=== PATIENT | male | born 1980 | race Caucasian/White ===

== ENCOUNTER 2017-12-28 10:58 | Day surgery (SDC) | payer BC ==
[2017-12-26 08:45] VITALS: BMI 25.7
[~2017-12-28 10:58] MED LIST: LACTATED RINGERS 1,000 ML IV SCH
[2017-12-28 11:59] VITALS: RESP 16; TEMP 98.9
[2017-12-28] MEDS ORDERED: LIDOCAINE 1% 20 ML VIAL (10MG/ML) FOR IV START INTRADERMA ONE (12:13)
[2017-12-28] MEDS ORDERED: PROPOFOL 10 MG/ML 20 ML VIAL IV ONE (12:47)
[2017-12-28] MEDS ORDERED: LIDOCAINE 1% INJ 10MG/ML (20 ML MDV) ONE (12:47)
--- NOTE | 2017-12-28 13:02 | P.PCN ---
Date of Procedure: 12/28/17 Procedure(s) Performed: BRIEF HISTORY: Patient is a 37-year-old pleasant male, scheduled for an elective colonoscopy as a part of evaluation of intermittent rectal bleeding for the last 6 months duration PROCEDURE PERFORMED: Colonoscopy. PREOPERATIVE DIAGNOSIS: Intermittent rectal bleeding of 6 months duration. IV sedation per Anesthesia. PROCEDURE: After informed consent was obtained, the patient, was brought into the endoscopy unit. IV sedation was administered by Anesthesia under continuous monitoring. Digital rectal examination revealed a posterior midline anal fissure. Initially the Olympus CF-160 flexible video colonoscope was then inserted in the rectum, gradually advanced into the cecum without any difficulty. Careful examination was performed as the scope was gradually being withdrawn. Ileocecal valve and the appendiceal orifice were visualized and appeared normal. Prep was excellent. Mucosa of the cecum, ascending colon, transverse colon, descending colon, sigmoid colon, and rectum appeared normal. Retroflexion was performed in the rectum and no lesions were seen. The patient tolerated the procedure well. IMPRESSION: Posterior midline anal fissure. Normal-appearing colon from rectum to cecum with no evidence of colitis or colorectal neoplasia. RECOMMENDATIONS: Findings of this examination were discussed with the patient well as his family. He was advised to be a high-fiber diet, take fiber supplements on a regular basis and avoid constipation. He was given a prescription for topical steroid cream as needed
[2017-12-28 13:24] VITALS: BP 130/90; PULSE 78
== END 2017-12-28 13:50 | disposition home or self-care (01) ==
LOC: ORWHC2ENDO 10:58
PROVIDERS: ATTEND Internal Medicine Gastroenterology
DX: K60.2 Anal fissure, unspecified (principal); I10 Essential (primary) hypertension; F17.210 Nicotine dependence, cigarettes, uncomplicated; Z88.5 Allergy status to narcotic agent; Z79.899 Other long term (current) drug therapy
CPT/HCPCS: 45378; J2001; J2704

== ENCOUNTER 2019-03-12 15:24 | Emergency (ER) | payer BC, OTHER ==
[2019-03-12 15:34] VITALS: BP 146/100; PULSE 80; RESP 20; TEMP 97.8
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
== END 2019-03-12 16:44 | disposition home or self-care (01) ==
LOC: EC 15:24
DX: S06.9X9A Unspecified intracranial injury with loss of consciousness of unspecified duration, initial encounter (principal); S09.93XA Unspecified injury of face, initial encounter; G93.0 Cerebral cysts; I10 Essential (primary) hypertension; Z79.899 Other long term (current) drug therapy; Z87.891 Personal history of nicotine dependence; W22.8XXA Striking against or struck by other objects, initial encounter; Y92.69 Other specified industrial and construction area as the place of occurrence of the external cause; Y99.0 Civilian activity done for income or pay
CPT/HCPCS: 70450; 70486; 72125; 99283

== ENCOUNTER → 2019-04-10 | Outpatient (CLI) | payer BC ==
--- NOTE | 2019-04-10 16:26 | MR ---
EXAMINATION TYPE: MR brain wo con DATE OF EXAM: 04/10/2019 COMPARISON: 03/12/2019 CT brain HISTORY: Cerebral cysts CONTRAST: Performed utilizing 0 mL intravenous Gadavist gadolinium contrast. TECHNIQUE: Multiplanar, multiecho imaging on a 3.0 Lou magnet is performed through the brain. Stud y is performed within 24 hours of arrival to the hospital. The craniovertebral junction is normal. The pituitary is normal. Diffusion-weighted imaging is performed. No abnormal hyperintensity is present to suggest an acute i ntracranial infarct or acute ischemic change. Signal through the brain is normal. Ventricles and sulci are appropriate for the patient age. No temporal horn dilatation is evident. No ventricular dilatation is evident. Lateral ventricles appear normal. Third ventricle is normal and sl it like. An abnormality to account for the signal abnormality on the CT is not identified. IMPRESSIONS: 1. No suspicious abnormality corresponding to suspected colloid cyst at the proximal third ventricle. No corresponding abnormality to account for the finding on CT.
== END | disposition home or self-care (01) ==
LOC: RADMRIMAIN 14:37
PROVIDERS: ATTEND Family Medicine
DX: G93.0 Cerebral cysts (principal)
CPT/HCPCS: 70551

== ENCOUNTER → 2019-12-22 | Outpatient (CLI) | payer BC ==
--- NOTE | 2019-12-22 17:18 | CT ---
EXAMINATION TYPE: CT abdomen pelvis w con DATE OF EXAM: 12/22/2019 COMPARISON: HISTORY: Epigastric abdominal pain. CT DLP: 1279 mGycm Automated exposure control for dose reduction was used. CONTRAST: Performed with IV Contrast, patient injected with 100ml mL of Isovue 300. Lung bases are clear of consolidation. There is minimal pleural thickening lateral posterior left sam g base that measures 1 x 1.5 cm. There is no pleural effusion. Heart size is normal. There is no deon cardial effusion. There is some mild fatty infiltration of the liver. Stomach is intact. Spleen appears normal. There i s no pancreatic mass. Gallbladder is contracted. There is no adrenal mass. Kidneys show satisfactory contrast opacification. There is no hydronephrosi s. Delayed images show normal renal excretion. There is 5.3 cm cortical cyst lateral right kidney. Th ere is 1.5 cm cortical cyst upper pole right kidney. There is no evidence of solid renal mass. There is 1.5 cm cortical cyst lateral left kidney. Ureters are not dilated. There is no retroperitoneal venkata nopathy. Bladder distends smoothly. There is no inguinal hernia. There is no free fluid in the pelvis . There is no mesenteric edema. There is no ascites or free air. There is no sign of a bowel obstructio n. Lumbar vertebra have normal spacing and alignment. Bony pelvis appears intact. Appendix is not def initely seen. There is no sign of thickened appendix. IMPRESSION: Minimal fatty infiltration of the liver. Appendix not seen. No sign of appendicitis. Focal pleural th ickening left posterior lateral lung base. Simple renal cysts.
== END | disposition home or self-care (01) ==
LOC: RADCTMAIN 14:46
PROVIDERS: ATTEND Family Medicine
DX: K76.0 Fatty (change of) liver, not elsewhere classified (principal); N28.1 Cyst of kidney, acquired
CPT/HCPCS: 74177; Q9967

== ENCOUNTER → 2019-12-25 | Outpatient (CLI) | payer BC | END | disposition home or self-care (01) | LOC: LABWHC1 12:47 | PROVIDERS: ATTEND Family Medicine | DX: R19.7 Diarrhea, unspecified (principal); R10.13 Epigastric pain; R11.10 Vomiting, unspecified | CPT/HCPCS: U0003; C9803 ==

== ENCOUNTER → 2020-01-12 | Outpatient (CLI) | payer BC ==
--- NOTE | 2020-01-13 07:08 | NM ---
Nuclear medicine hepatobiliary scan. HISTORY: Pain. DOSAGE: The patient received 8 ounces of ensure plus and 4.5 mCi of Technetium 99m Choletec. FINDINGS: There is normal hepatic extraction. The gallbladder is seen by 15 minutes. There is bilia ry to bowel clearance by 15 minutes. Ejection fraction is 89%. IMPRESSION: 1. No evidence of cholecystitis. 2. Ejection fraction of 89% can occasionally be seen with hyperdynamic gallbladder correlate clinical ly
== END | disposition home or self-care (01) ==
LOC: RADNMMAIN 15:11
PROVIDERS: ATTEND Family Medicine
DX: K81.9 Cholecystitis, unspecified (principal)
CPT/HCPCS: 78226; A9537

== ENCOUNTER → 2020-03-03 | Outpatient (CLI) | payer BC | END | disposition home or self-care (01) | LOC: LABWHC1 12:23 | PROVIDERS: ATTEND Family Medicine | DX: Z03.818 Encounter for observation for suspected exposure to other biological agents ruled out (principal) | CPT/HCPCS: U0003; C9803 ==

== ENCOUNTER → 2020-03-08 | Outpatient (CLI) | payer BC ==
--- NOTE | 2020-03-08 11:18 | US ---
EXAMINATION TYPE: US gallbladder DATE OF EXAM: 03/08/2020 COMPARISON: CLINICAL HISTORY: R10.13 Epigastric pain. Epigastric pain EXAM MEASUREMENTS: Liver Length: 17.6 cm Gallbladder Wall: 0.2 cm CBD: 0.4 cm Right Kidney: 10.5 x 5.9 x 7.0 cm Pancreas: Tail obscured by overlying bowel gas Liver: Echogenic and coarse in appearance. Prominent hypoechoic area seen in left lobe of liver off of left portal vein. No flow visualized. Gallbladder: wnl Evidence for sonographic Soni's sign: neg CBD: wnl Right Kidney: Lateral cystic lesion = 4.9 x 4.6 x 4.8 cm. [place] hypoechoic lesion with echogenic r im= 1.4 x 1.9 x 1.2 cm. IMPRESSION: 1. Hepatic steatosis. 2 right renal cystic changes.
== END | disposition home or self-care (01) ==
LOC: RADUSWWP 10:41
PROVIDERS: ATTEND Surgery
DX: K76.0 Fatty (change of) liver, not elsewhere classified (principal); N28.1 Cyst of kidney, acquired
CPT/HCPCS: 76705

== ENCOUNTER 2020-03-21 18:39 | Emergency (ER) | payer BC ==
[2020-03-21 19:02] VITALS: RESP 18
--- NOTE | 2020-03-21 19:04 | ED ---
Male Urogenital HPI - General Chief complaint: Urogenital Stated complaint: testicular pain Time Seen by Provider: 03/21/20 19:03 Source: patient, RN notes reviewed, old records reviewed Mode of arrival: ambulatory Limitations: no limitations - History of Present Illness Initial comments: This is a 40-year-old male patient Dese for evaluation regards to her right testicular pain. Patient has had a vasectomy. 3 children. Sudden onset of pain tonight. Very nauseous very sweaty no other significant medical history. No fevers. MD Complaint: testicle pain (Right) -: minutes(s) Location: right testicle Radiation: none Severity: severe Severity scale (1-10): 10 Quality: sharp Consistency: constant Improves with: none Worsens with: none Reports: denies other symptoms - Related Data Home Medications Medication Instructions Recorded Confirmed Lisinopril [Prinivil] 10 mg PO DAILY 12/20/13 03/21/20 Ibuprofen [Motrin Ib] 400 mg PO Q8H PRN 03/21/20 03/21/20 Previous Rx's Medication Instructions Recorded Ciprofloxacin HCl [Cipro] 500 mg PO Q12HR #14 tablet 03/21/20 Allergies Allergy/AdvReac Type Severity Reaction Status Date / Time codeine Allergy N/V Verified 03/21/20 20:28 Review of Systems ROS Statement: Those systems with pertinent positive or pertinent negative responses have been documented in the HPI. ROS Other: All systems not noted in ROS Statement are negative. Past Medical History Past Medical History: Hypertension Additional Past Medical History / Comment(s): HAS BEEN HAVING BLOOD IN STOOLS FOR OVER 2 YEARS OFF AND ON History of Any Multi-Drug Resistant Organisms: None Reported Past Surgical History: Appendectomy Additional Past Surgical History / Comment(s): COLONOSCOPY Past Anesthesia/Blood Transfusion Reactions: No Reported Reaction Past Psychological History: No Psychological Hx Reported Smoking Status: Current every day smoker Past Alcohol Use History: Occasional Past Drug Use History: None Reported - Past Family History Mother Family Medical History: No Reported History General Exam Limitations: no limitations General appearance: alert, in no apparent distress Head exam: Present: atraumatic, normocephalic, normal inspection Eye exam: Present: normal appearance, PERRL, EOMI. Absent: scleral icterus, conjunctival injection, periorbital swelling ENT exam: Present: normal exam, mucous membranes moist Neck exam: Present: normal inspection. Absent: tenderness, meningismus, lymphadenopathy Respiratory exam: Present: normal lung sounds bilaterally. Absent: respiratory distress, wheezes, rales, rhonchi, stridor Cardiovascular Exam: Present: regular rate, normal rhythm, normal heart sounds. Absent: systolic murmur, diastolic murmur, rubs, gallop, clicks GI/Abdominal exam: Present: soft, normal bowel sounds. Absent: distended, tenderness, guarding, rebound, rigid exam: Present: scrotal swelling External exam: Present: swelling Extremities exam: Present: normal inspection, full ROM, normal capillary refill. Absent: tenderness, pedal edema, joint swelling, calf tenderness Back exam: Present: normal inspection Neurological exam: Present: alert, oriented X3, CN II-XII intact Psychiatric exam: Present: normal affect, normal mood Skin exam: Present: warm, dry, intact, normal color. Absent: rash Course Vital Signs 03/21/20 03/21/20 18:59 21:00 Temperature 98 F 98.0 F Pulse Rate 92 80 Respiratory 18 18 Rate Blood Pressure 140/97 143/80 O2 Sat by Pulse 100 97 Oximetry - Reevaluation(s) Reevaluation #1: 03/21/20 19:11 Medical records reviewed Reevaluation #2: 03/21/20 19:11 Patient made urgent ultrasound - Consultations Consultation #1: Spoke with urology recommended outpatient follow-up Medical Decision Making - Medical Decision Making 40-year-old male has received BLOOD pain control currently. Patient will see urology an outpatient basis - Lab Data Result diagrams: 03/21/20 19:17 03/21/20 19:17 Lab Results 03/21/20 03/21/20 03/21/20 Range/Units 19:17 19:17 19:17 WBC 11.3 H (3.8-10.6) k/uL RBC 5.50 (4.30-5.90) m/uL Hgb 18.3 H (13.0-17.5) gm/dL Hct 51.8 (39.0-53.0) % MCV 94.2 (80.0-100.0) fL MCH 33.2 (25.0-35.0) pg MCHC 35.2 (31.0-37.0) g/dL RDW 12.1 (11.5-15.5) % Plt Count 220 (150-450) k/uL Neutrophils % 51 % Lymphocytes % 37 % Monocytes % 7 % Eosinophils % 3 % Basophils % 1 % Neutrophils # 5.8 (1.3-7.7) k/uL Lymphocytes # 4.1 (1.0-4.8) k/uL Monocytes # 0.8 (0-1.0) k/uL Eosinophils # 0.3 (0-0.7) k/uL Basophils # 0.1 (0-0.2) k/uL PT 9.9 (9.0-12.0) sec INR 0.9 (<1.2) APTT 24.1 (22.0-30.0) sec Sodium 137 (137-145) mmol/L Potassium 3.4 L (3.5-5.1) mmol/L Chloride 103 (98-107) mmol/L Carbon Dioxide 25 (22-30) mmol/L Anion Gap 9 mmol/L BUN 23 H (9-20) mg/dL Creatinine 0.89 (0.66-1.25) mg/dL Est GFR (CKD-EPI)AfAm >90 (>60 ml/min/1.73 sqM) Est GFR (CKD-EPI)NonAf >90 (>60 ml/min/1.73 sqM) Glucose 122 H (74-99) mg/dL Calcium 9.4 (8.4-10.2) mg/dL Urine Color Urine Appearance (Clear) Urine pH (5.0-8.0) Ur Specific [place] (1.001-1.035) Urine Protein (Negative) Urine Glucose (UA) (Negative) Urine Ketones (Negative) Urine Blood (Negative) Urine Nitrite (Negative) Urine Bilirubin (Negative) Urine Urobilinogen (<2.0) mg/dL Ur Leukocyte Esterase (Negative) 03/21/20 Range/Units 20:13 WBC (3.8-10.6) k/uL RBC (4.30-5.90) m/uL Hgb (13.0-17.5) gm/dL Hct (39.0-53.0) % MCV (80.0-100.0) fL MCH (25.0-35.0) pg MCHC (31.0-37.0) g/dL RDW (11.5-15.5) % Plt Count (150-450) k/uL Neutrophils % % Lymphocytes % % Monocytes % % Eosinophils % % Basophils % % Neutrophils # (1.3-7.7) k/uL Lymphocytes # (1.0-4.8) k/uL Monocytes # (0-1.0) k/uL Eosinophils # (0-0.7) k/uL Basophils # (0-0.2) k/uL PT (9.0-12.0) sec INR (<1.2) APTT (22.0-30.0) sec Sodium (137-145) mmol/L Potassium (3.5-5.1) mmol/L Chloride (98-107) mmol/L Carbon Dioxide (22-30) mmol/L Anion Gap mmol/L BUN (9-20) mg/dL Creatinine (0.66-1.25) mg/dL Est GFR (CKD-EPI)AfAm (>60 ml/min/1.73 sqM) Est GFR (CKD-EPI)NonAf (>60 ml/min/1.73 sqM) Glucose (74-99) mg/dL Calcium (8.4-10.2) mg/dL Urine Color Yellow Urine Appearance Clear (Clear) Urine pH 5.5 (5.0-8.0) Ur Specific [place] 1.026 (1.001-1.035) Urine Protein Trace H (Negative) Urine Glucose (UA) Negative (Negative) Urine Ketones Negative (Negative) Urine Blood Negative (Negative) Urine Nitrite Negative (Negative) Urine Bilirubin Negative (Negative) Urine Urobilinogen <2.0 (<2.0) mg/dL Ur Leukocyte Esterase Negative (Negative) - Radiology Data Radiology results: report reviewed (Ultrasound scrotal negative for torsion), image reviewed Disposition Clinical Impression: UTI (urinary tract infection) Disposition: HOME SELF-CARE Condition: Good Instructions (If sedation given, give patient instructions): Urinary Tract Infection in Men (ED) Prescriptions: Ciprofloxacin HCl [Cipro] 500 mg PO Q12HR #14 tablet Is patient prescribed a controlled substance at d/c from ED?: No Referrals: Bebeto Salas MD [STAFF PHYSICIAN] - 1-2 days
[2020-03-21] MEDS ORDERED: MORPHINE SULFATE 4 MG/ML SYRINGE IV STA (19:08)
[2020-03-21] MEDS ORDERED: SODIUM CHLORIDE 0.9% 1,000 ML IV STA ×2 (19:08)
[2020-03-21 19:31] LABS: Basophils # (A) 0.1 k/uL (0-0.2); Basophils % (A) 1 %; Eosinophils # (A) 0.3 k/uL (0-0.7); Eosinophils % (A) 3 %; HCT 51.8 % (39.0-53.0); HGB 18.3 gm/dL (13.0-17.5); Lymphocytes # (A) 4.1 k/uL (1.0-4.8); Lymphocytes % (A) 37 %; MCH 33.2 pg (25.0-35.0); MCHC 35.2 g/dL (31.0-37.0); MCV 94.2 fL (80.0-100.0); Mean Platelet Volume 8.3; Monocytes # (A) 0.8 k/uL (0-1.0); Monocytes % (A) 7 %; Neutrophils # (A) 5.8 k/uL (1.3-7.7); Neutrophils % (A) 51 %; Platelet Count 220 k/uL (150-450); RDW 12.1 % (11.5-15.5); WBC 11.3 k/uL (3.8-10.6)
[2020-03-21 19:38] LABS: INR 0.9 (<1.2); Partial Thromboplastin Time 24.1 sec (22.0-30.0); Prothrombin Time 9.9 sec (9.0-12.0)
[2020-03-21 19:44] LABS: African American GFR (CKD) >90 (>60 ml/min/1.73 sqM); Anion Gap 9 mmol/L; Blood Urea Nitrogen 23 mg/dL (9-20); Calcium 9.4 mg/dL (8.4-10.2); Carbon Dioxide 25 mmol/L (22-30); Chloride 103 mmol/L (98-107); Glucose 122 mg/dL (74-99); Non-African American GFR(CKD) >90 (>60 ml/min/1.73 sqM); Sodium 137 mmol/L (137-145)
[2020-03-21 19:57] LABS: Potassium 3.4 mmol/L (3.5-5.1)
--- NOTE | 2020-03-21 20:30 | US ---
EXAMINATION TYPE: US scrotum with doppler. Grayscale and color Doppler Duplex imaging performed of t he scrotum. DATE OF EXAM: 03/21/2020 COMPARISON: NONE CLINICAL HISTORY: pain. Pain rt testicle.Started with left testicle to let pain meds kick in. EXAM MEASUREMENTS: TESTICLES: Right Testicle: 4.9 x 2.6 x 2.9 cm Left Testicle: 4.0 x 2.4 x 2.7 cm EPIDIDYMIS HEAD: Right Epididymis: cm Left Epididymis: 1.0 x 1.3 x .8 cm Doppler performed to assess for testicular vascularity; good bilateral color flow and waveforms are s een. There is no evidence of testicular torsion. Presence of hydroceles: No Presence of varicoceles: No IMPRESSION: No testicular torsion or mass.
[2020-03-21] MEDS ORDERED: IBUPROFEN 600 MG STARTER PACK 4 TAB BTL PO STA (20:33)
[2020-03-21] MEDS ORDERED: cefTRIAXone IN SWFI 1,000 MG/10 ML SYRINGE IVP STA (20:33)
[2020-03-21] MEDS ORDERED: ACET/COD 300 MG/30 MG STARTER PACK 6 TAB BTL PO STA (20:33)
[2020-03-21] MEDS ORDERED: KETOROLAC 15 MG/ML 1 ML VIAL IVP STA (20:33)
[2020-03-21 20:42] LABS: Appearance,Urine Clear (Clear); Bilirubin,Urine Negative (Negative); Blood,Urine Negative (Negative); Color,Urine Yellow; Glucose,Urine (UA) Negative (Negative); Ketones,Urine Negative (Negative); Leukocyte Esterase,Urine Negative (Negative); Nitrite,Urine Negative (Negative); PH, Urine 5.5 (5.0-8.0); Protein,Urine Trace (Negative); Specific Gravity,Urine 1.026 (1.001-1.035); Urobilinogen,Urine <2.0 mg/dL (<2.0)
[2020-03-21] MEDS ORDERED: MORPHINE SULFATE 4 MG/ML SYRINGE IVP STA (21:00)
[2020-03-21 21:02] VITALS: BP 143/80; PULSE 80; TEMP 98
[2020-03-23 16:04] LABS: C. trachomatis,PCR Negative (Neg,Equiv); Chlamydia trachomatis Source Urine; N. gonorrhoeae,PCR Negative (Neg,Equiv); Neisseria Source Urine
== END 2020-03-21 21:43 | disposition home or self-care (01) ==
LOC: EC 18:39
DX: N39.0 Urinary tract infection, site not specified (principal); I10 Essential (primary) hypertension; F17.200 Nicotine dependence, unspecified, uncomplicated; Z79.899 Other long term (current) drug therapy; Z88.5 Allergy status to narcotic agent
CPT/HCPCS: 36415; 80048; 85025; 85610; 85730; 81003; 87491; 87591; 93975; 76870; 99285; 96374; 96375 ×2; 96376; 96361 ×2; J2270; J0696; J1885

== ENCOUNTER → 2020-03-30 | Day surgery (SDC) | payer BC ==
[2020-03-29 09:27] VITALS: BMI 26.4
[~2020-03-30] MED LIST changes: +LIDOCAINE 1% (10MG/ML) FOR IV START INTRADERMA PRN; +LIDOCAINE 1% INJ 10MG/ML (20 ML MDV) ONE; +MIDAZOLAM 2 MG/2 ML VIAL IV PRN; +ONDANSETRON 4 MG/2 ML VIAL IVP PRN; +PROPOFOL 10 MG/ML 20 ML VIAL IV ONE; +fentaNYL (PF) 50 MCG/ML 2 ML AMP IV PRN
[2020-03-30 11:09] VITALS: TEMP 98.3
--- NOTE | 2020-03-30 12:08 | P.GSHP ---
History of Present Illness H&P Date: 03/30/20 Chief Complaint: Abdominal pain, change in bowel habits 40-year-old male seen recently in the office. Patient complaining of both epigastric pain and frequent diarrhea. Blood at times. Last colonoscopy 1 year ago by GI. The study was normal. Recent CAT scan reportedly normal. HIDA scan showed an elevated ejection fraction. Ultrasound normal. Patient also complaining of right scrotal pain. Past Medical History Past Medical History: Hypertension Additional Past Medical History / Comment(s): diarrhea daily, occasional blood in stool., states stomach pains. History of Any Multi-Drug Resistant Organisms: None Reported Past Surgical History: Appendectomy Additional Past Surgical History / Comment(s): COLONOSCOPY Past Anesthesia/Blood Transfusion Reactions: No Reported Reaction Past Psychological History: No Psychological Hx Reported Smoking Status: Former smoker Past Alcohol Use History: None Reported Additional Past Alcohol Use History / Comment(s): QUIT SMOKING 2015, smoked 1 ppd, started smoking age 14. Past Drug Use History: None Reported - Past Family History Mother Family Medical History: No Reported History Medications and Allergies Home Medications Medication Instructions Recorded Confirmed Type Lisinopril [Prinivil] 10 mg PO DAILY 12/20/13 03/30/20 History Allergies Allergy/AdvReac Type Severity Reaction Status Date / Time codeine Allergy N/V Verified 03/30/20 11:04 Surgical - Exam Vital Signs Temp Pulse Resp BP Pulse Ox 98.3 F 98 16 129/89 96 03/30/20 11:07 03/30/20 11:07 03/30/20 11:07 03/30/20 11:07 03/30/20 11:07 Physical exam: General: Well-developed, well-nourished HEENT: Normocephalic, sclerae nonicteric Abdomen: Nontender, nondistended Extremities: No edema Neuro: Alert and oriented Assessment and Plan (1) Rectal bleeding Narrative/Plan: 40-year-old male with epigastric pain, rectal bleeding, and diarrhea. We'll proceed with upper and lower endoscopy at this time. Current Visit: Yes Status: Acute Code(s): K62.5 - HEMORRHAGE OF ANUS AND RECTUM SNOMED Code(s): 45880697
--- NOTE | 2020-03-30 12:26 | P.PCN ---
Date of Procedure: 03/30/20 Procedure(s) Performed: PREOPERATIVE DIAGNOSIS: Epigastric pain, change in bowel habits, rectal bleeding POSTOPERATIVE DIAGNOSIS: Gastritis with superficial ulcerations, gastritis, normal colon PROCEDURE: 1. EGD with biopsy 2. Colonoscopy random biopsy ANESTHESIA: [facility] [place] SURGEON: Damian Meza M.D. SPECIMENS: Antrum, random: ENDOSCOPIC PROCEDURE: The patient was on the endoscopy table in the left decubitus position. The Olympus gastroscope was inserted into the oropharynx and passed under direct visualization to the region of the third portion of the duodenum. From that point the scope was slowly withdrawn inspecting all surfaces carefully. There were no neoplastic inflammatory or polypoid lesions throughout the duodenum. The pylorus was widely patent. The stomach was carefully inspected. There was Estrace with multiple superficial ulcers present in the antrum and prepyloric region. Biopsies of the ulcers took place. Retroflexion revealed a normal hiatus. The esophagus was then carefully examined. There were no neoplastic inflammatory or polypoid lesions throughout the visualized esophagus. The patient was kept on the endoscopy table in the left decubitus position. The Olympus colonoscope was inserted into the anus and passed under direct visualization to the base of the cecum. The appendiceal orifice was visualized. The terminal ileum was inspected and appeared normal. A biopsy of the ileum took place to rule out inflammatory bowel disease. From that point the scope was slowly withdrawn inspecting all surfaces carefully. There were no neoplastic inflammatory or polypoid lesions throughout the cecum, ascending, transverse, descending, sigmoid and rectum. There was no visible diverticulosis noted. Random biopsies of the colon took place to rule out microscopic colitis. Digital rectal examination was normal. The patient was taken to the recovery room in stable condition per anesthesia guidelines. RECOMMENDATIONS: Await biopsy results. Begin antiacid therapy.
[2020-03-30 12:28] VITALS: RESP 17
[2020-03-30 12:39] VITALS: BP 100/64; PULSE 70
== END ==
LOC: ORWHC2ENDO 10:48
PROVIDERS: ATTEND Surgery
DX: R19.4 Change in bowel habit (principal); R19.7 Diarrhea, unspecified; K29.51 Unspecified chronic gastritis with bleeding; K25.4 Chronic or unspecified gastric ulcer with hemorrhage; N50.82 Scrotal pain; I10 Essential (primary) hypertension; Z90.49 Acquired absence of other specified parts of digestive tract; Z98.890 Other specified postprocedural states; Z87.891 Personal history of nicotine dependence; Z79.899 Other long term (current) drug therapy; Z88.5 Allergy status to narcotic agent
CPT/HCPCS: 88305; 45380; 43239; J2001; J2704

== ENCOUNTER → 2020-04-02 | Outpatient (CLI) | payer BC ==
--- NOTE | 2020-04-02 15:34 | CT ---
EXAMINATION TYPE: CT abdomen pelvis w con DATE OF EXAM: 04/02/2020 COMPARISON: CT abdomen and pelvis December 22, 2019 HISTORY: Liver lesion and ulcers per patient. No complaints at time of scan. CT DLP: 973.7 mGycm, Automated Exposure Control for Dose Reduction was Utilized. CONTRAST: CT scan of the abdomen and pelvis is performed with oral and with IV Contrast, patient injected with 100 mL of Isovue 300. FINDINGS: LUNG BASES: There is stable 1.3 x 1.0 cm lateral left basilar nodule axial image 9. LIVER/GB: Heterogeneous hypodense tissue throughout the liver consistent with diffuse fatty infiltrat ion redemonstrated. No distinct solid or cystic intrahepatic mass. PANCREAS: No significant abnormality is seen. SPLEEN: No significant abnormality is seen. ADRENALS: No significant abnormality is seen. KIDNEYS: Symmetrical medullary uptake and excretion without hydronephrosis seen bilaterally. Simple a ppearing is slightly lobulated thin walled 5.1 cm cyst or adjacent cysts in the right kidney mid to l ower pole level are redemonstrated. Subcentimeter thin-walled cyst laterally left kidney midpole leve l delayed axial image 33 noted. Persistent 2 nonobstructing upper pole right renal calculi up to 6 mm in size. BOWEL: Oral contrast reaches level of rectum. Suspicious small or large bowel dilatation. Appendix no t seen similar to prior and presumed surgically absent. Stomach not greatly distended on current stud y and thus suboptimally evaluated. More adequate distention noted on prior. PROSTATE/SEMINAL VESICLES: No gross abnormality seen. LYMPH NODES: No greater than 1cm abdominal or pelvic lymph nodes are appreciated. OSSEOUS STRUCTURES: No significant abnormality is seen. OTHER: No significant additional abnormality is seen. IMPRESSION: Diffuse fatty infiltration of liver redemonstrated. No suspicious focal mass or ductal di latation. Simple appearing thin-walled cysts in both kidneys. Stable nonobstructing right renal calcu li. Stable 1.3 x 1.0 cm basilar left lung nodule. Consider continued follow-up and/or PET CT evaluati on.
== END | disposition home or self-care (01) ==
LOC: RADCTMAIN 12:02
PROVIDERS: ATTEND Surgery
DX: K76.0 Fatty (change of) liver, not elsewhere classified (principal); N20.0 Calculus of kidney
CPT/HCPCS: 74177; Q9967

== ENCOUNTER → 2021-03-06 | Outpatient (CLI) | payer BC ==
--- NOTE | 2021-03-06 13:37 | MR ---
EXAMINATION TYPE: MR knee RT wo con DATE OF EXAM: 03/06/2021 COMPARISON: Outside right knee x-ray February 15, 2021 HISTORY: Right knee pain and swelling for years, hx medial meniscus injury. TECHNIQUE: Multiplanar, multisequence imaging of the right knee is performed without IV contrast. FINDINGS: MEDIAL MENISCUS: Some of-like signal posterior horn medial meniscus does not definitively articular s urface. LATERAL MENISCUS: Anterior and posterior horns are intact without tear. CRUCIATE LIGAMENTS: The anterior and posterior cruciate ligaments are intact and unremarkable. COLLATERAL LIGAMENTS: The medial collateral ligament and lateral collateral ligament complex are inta ct. Mild fluid signal surrounds the lateral ligament coronal image 22 for reference. EXTENSOR MECHANISM: Visualized quadriceps and patellar tendons are intact. EFFUSION: Small suprapatellar joint effusion. POPLITEAL CYST: No popliteal/leroy cyst. TRICOMPARTMENT SPACES: Tricompartment joint spaces show mild narrowing. More prominent narrowing infe rior patellofemoral compartment. Mild spurring patellofemoral compartment. CARTILAGE: Significant full-thickness cartilaginous loss inferior posterior patellar pole. Tricompart mental articular cartilage is otherwise preserved. BONE MARROW SIGNAL: Heterogeneous increased T2 signal along the posterior inferior aspect of the bailey lla as site of most prominent narrowing and cartilaginous loss. OTHER: No additional significant abnormality is appreciated. IMPRESSION: 1. Suspect intrasubstance tear posterior horn medial meniscus, no full-thickness meniscal tear. 2. Mild MCL sprain injury. 3. Small suprapatellar joint effusion. 4. Mild tricompartment degenerative changes except inferior patellofemoral compartment where more mod erate to severe findings are present as detailed above
== END | disposition home or self-care (01) ==
LOC: RADMRIMAIN 12:44
PROVIDERS: ATTEND Orthopaedic Surgery
DX: S83.411A Sprain of medial collateral ligament of right knee, initial encounter (principal); M25.461 Effusion, right knee; X58.XXXA Exposure to other specified factors, initial encounter

== ENCOUNTER → 2022-08-29 | Outpatient (CLI) | payer BC ==
--- NOTE | 2022-08-29 09:33 | XR ---
EXAMINATION TYPE: XR KUB DATE OF EXAM: 08/29/2022 9:17 AM CLINICAL HISTORY: Kidney stones. TECHNIQUE: Two supplying KUB images of the abdomen are obtained. COMPARISON: Most recent CT April 02, 2020. FINDINGS: There are 2 right-sided renal calculi upper pole level redemonstrated with largest calculus medially measuring 5 mm in size. No left-sided nephrolithiasis. Overall nonobstructive bowel gas pattern. Lung bases are clear. Visualized osseous structures are int act. IMPRESSION: As above.
== END ==
LOC: RADXRMAIN 09:01
PROVIDERS: ATTEND Urology
DX: N20.0 Calculus of kidney (principal)
CPT/HCPCS: 74018

== ENCOUNTER → 2022-09-19 | Outpatient (CLI) | payer BC ==
--- NOTE | 2022-09-19 21:50 | XR ---
EXAMINATION TYPE: XR KUB DATE OF EXAM: 09/19/2022 CLINICAL HISTORY: Kidney stones. TECHNIQUE: Two supine KUB images of the abdomen are obtained. COMPARISON: Most recent KUB 08/21/2022 FINDINGS: Limited evaluation due to bowel contents overlying the kidneys. There appears to be stable 5 mm calculus within the upper pole of the right kidney. No definitive left-sided nephrolithiasis. Ov erall nonobstructive bowel gas pattern. Lung bases are clear. Visualized osseous structures are intac t. IMPRESSION: As above.
== END | disposition home or self-care (01) ==
LOC: RADXRMAIN 15:50
PROVIDERS: ATTEND Urology
DX: N20.1 Calculus of ureter (principal)
CPT/HCPCS: 74018

== ENCOUNTER → 2022-09-26 | Outpatient (CLI) | payer BC ==
--- NOTE | 2022-09-26 15:26 | XR ---
EXAMINATION TYPE: XR KUB DATE OF EXAM: 09/26/2022 HISTORY: Pain Comparison: 09/19/2022 Single KUB is submitted for interpretation. Findings: Right renal calculi: 7 mm calculus upper pole right kidney. Right kidney is obscured by bowel content . Right ureteral calculi: 2 mm calculus in the region of the right UVJ. Distal ureteral calculus diffic ult to exclude. Left renal calculi: None Visualized. Left ureteral calculi: None Visualized. Pelvic calcifications: None Visualized. Bowel gas pattern is unremarkable. No free air. No mass effects. IMPRESSION: 1. As above
== END | disposition home or self-care (01) ==
LOC: RADXRMAIN 14:51
PROVIDERS: ATTEND Urology
DX: N20.0 Calculus of kidney (principal)
CPT/HCPCS: 74018

== ENCOUNTER → 2022-10-17 | Outpatient (CLI) | payer BC ==
--- NOTE | 2022-10-17 18:07 | XR ---
EXAMINATION TYPE: XR KUB DATE OF EXAM: 10/17/2022 Comparison: 09/26/2022 Clinical History: 42-year-old male N20.0 CALCULUS OF KIDNEY Findings: Nonobstructive bowel gas pattern. No significant stool burden. Possible faint 3 mm calcification proj ecting at the upper pole of the right kidney. Otherwise, no definite suspicious calcifications are ra diographically apparent. Impression: Possible 3 mm nonobstructive right renal calculus. Otherwise, no definite suspicious calcifications r adiographically apparent.
== END | disposition home or self-care (01) ==
LOC: RADXRMAIN 12:38
PROVIDERS: ATTEND Urology
DX: N20.0 Calculus of kidney (principal)
CPT/HCPCS: 74018

== ENCOUNTER → 2023-07-20 | Outpatient (CLI) | payer BC ==
--- NOTE | 2023-07-20 18:20 | XR ---
EXAMINATION TYPE: XR KUB DATE OF EXAM: 07/20/2023 Comparison: 10/17/2022 Clinical History: 43-year-old male N20.0 CALCULUS OF KIDNEY Findings: Nonobstructive bowel gas pattern. No significant stool burden. Tiny pelvic phlebolith on the right side. No suspicious calcifications are clearly identified radiogr aphically. Impression: Nonobstructive bowel gas pattern. No significant stool burden. No suspicious calcification radiograph ically appreciated.
== END | disposition home or self-care (01) ==
LOC: RADXRMAIN 11:20
PROVIDERS: ATTEND Urology
DX: N20.0 Calculus of kidney (principal)
CPT/HCPCS: 74018

== ENCOUNTER → 2023-07-27 | Outpatient (CLI) | payer BC ==
--- NOTE | 2023-07-27 12:47 | CT ---
CT angiogram. HISTORY: Gross hematuria. COMPARISON: CT abdomen and pelvis dated 04/02/2020. TECHNIQUE: Multiple axial images were obtained through the abdomen and pelvis before and after the un eventful administration of nonionic IV contrast. Serial delayed postcontrast images were also obtaine d. Coronal and sagittal reconstructions are generated and reviewed. FINDINGS: There is an 11 to 12 mm subpleural parenchymal nodule in the left lung base which is seen previously are stable. On the pre-IV contrast images, there are no gallstones. There is a 4 mm nonobstructing calcification right kidney. 2 larger calcifications seen in the right kidney in the prior study have resolved. Ther e are no gallstones. The gallbladder is normal and there is no distention or biliary ductal dilatation. There are no focal masses within the liver, pancreas, spleen or adrenal glands and there is no organo megaly. There is moderate fatty infiltration of the liver. Kidneys excrete contrast promptly and symmetrically and there is no solid renal mass, hydronephrosis or filling defect within the renal collecting systems, ureters or urinary bladder. There is a cortica l cyst of the right kidney with calcification of the wall. It was seen previously and is stable. Ther e is a stable 4 x 5.1 cm calyceal diverticulum on the right. There is a stable small simple cortical cyst of the left kidney. The bowel loops are normal in caliber and there is no dilatation or obstruction. No inflammatory solares ges are identified in the bowel wall or mesentery. There is no free intraperitoneal air or fluid. There is no pelvic mass, free fluid, abscess or adenopathy. The osseous structures are intact. IMPRESSION: IMPRESSION: 1. 3 to 4 mm nonobstructing calcification right kidney. 2. No solid renal mass or hydronephrosis. 3. Stable Large calyceal diverticulum of the right kidney. 4. No solid renal mass or filling defects within the renal collecting systems, ureters or urinary obinna dder 5. Fatty infiltration of liver 6. Stable 11 to 12 mm subpleural parenchymal nodule in the left lung base.
== END | disposition home or self-care (01) ==
LOC: RADCTMAIN 11:03
PROVIDERS: ATTEND Urology
DX: N20.0 Calculus of kidney (principal); R31.0 Gross hematuria; N28.89 Other specified disorders of kidney and ureter; K76.0 Fatty (change of) liver, not elsewhere classified; R91.1 Solitary pulmonary nodule
CPT/HCPCS: 74178; 74400; Q9967

== ENCOUNTER → 2024-09-24 | Outpatient (CLI) | payer BC ==
--- NOTE | 2024-09-24 20:03 | MR ---
EXAMINATION TYPE: MR knee LT wo con DATE OF EXAM: 09/24/2024 5:47 PM COMPARISON: Plain film. CLINICAL INDICATION: Male, 44 years old with history of M25.562, Left knee pain and swelling, Fell 3. 5 weeks ago, Recently had knee drained TECHNIQUE: Multi planar, multi sequence imaging was performed of the knee including: Triplane proton density fat-saturated images and T1-weighted imaging. No Gadolinium was given. IV Contrast: mL (none if empty) FINDINGS: Medial meniscus: Intact Medial femorotibial cartilage: Grade-I chondromalacia. Medial collateral ligament: Intact Lateral meniscus: Intact Lateral femorotibial cartilage: Grade-I chondromalacia. Lateral collateral ligament complex: Intact Patellofemoral alignment: Normal Patellofemoral cartilage: Grade-I chondromalacia. Extensor mechanism: Quadriceps tendon and patellar tendon are intact.. Medial Patellar retinacula r injury as described below. Joint/bursal fluid: Infrapatellar edema on office fat pad series 411 image 13 Muscles/tendons: The patellar tendon, quadriceps tendon, IT band, pes anserinus tendons, semimembrano silva tendon, popliteus tendon, and biceps femoris tendon are all within normal limits. Bone marrow: Normal. Anterior cruciate ligament: Intact ganglion cyst adjacent to the ACL. Posterior cruciate ligament: Intact. Soft tissues: Prepatellar edema with more organized fluid collection in the medial aspect of the bailey llar retinaculum. The medial patellar retinaculum demonstrates undulation series 201 image 30. IMPRESSION: 1. Medial patellar retinaculum high-grade partial present and superficial fluid collection present i mmediately adjacent fat with surrounding edema throughout the soft tissues. 2. Edema within lateral Hoffa's fat pad possibly secondary to the retinacular injury and lateral dev iation of the patella 3. The MCL/ACL/PCL/LCL are intact. 4. The medial and lateral menisci are intact. 5. No evidence for fracture. [facility], , 09/24/2024 8:01 PM
== END | disposition home or self-care (01) ==
LOC: RADMRIMAIN 16:54
PROVIDERS: ATTEND Orthopaedic Surgery
DX: R60.0 Localized edema (principal); M67.462 Ganglion, left knee

== ENCOUNTER → 2024-09-26 | Outpatient (CLI) | payer BC ==
[2024-09-26 18:41] LABS: Basophils # (A) 0.03 X 10*3/uL (0.00-0.10); Basophils % (A) 0.4 %; Eosinophils # (A) 0.13 X 10*3/uL (0.04-0.35); Eosinophils % (A) 1.9 %; HCT 48.6 % (39.6-50.0); HGB 16.9 g/dL (13.0-17.0); Lymphocytes % (A) 35.9 %; MCH 31.6 pg (27.0-32.0); MCHC 34.8 g/dL (32.0-37.0); Mean Platelet Volume 11.9 FL (9.5-12.2); Monocytes # (A) 0.75 X 10*3/uL (0.20-1.00); Monocytes % (A) 10.8 %; NRBC Per 100 WBC 0 X 10*3/uL (0.00-0.01); Neutrophils # (A) 3.55 X 10*3/uL (1.80-7.70); Neutrophils % (A) 50.9 %; Platelet Count 213 X 10*3/uL (140-440); RBC 5.34 X 10*6/uL (4.40-5.60); RDW 12.1 % (11.5-14.5); WBC 6.97 X 10*3/uL (4.50-10.00)
[2024-09-26 18:56] LABS: Potassium 3.9 mmol/L (3.5-5.5)
== END | disposition home or self-care (01) ==
LOC: LABPAT 12:20
PROVIDERS: ATTEND Orthopaedic Surgery
DX: Z01.812 Encounter for preprocedural laboratory examination (principal); M23.92 Unspecified internal derangement of left knee
CPT/HCPCS: 80051; 85025

== ENCOUNTER 2024-09-29 13:06 | Day surgery (SDC) | payer BC ==
--- NOTE | 2024-09-29 05:26 | HP ---
HISTORY AND PHYSICAL DATE OF SURGERY: 09/29/2024 HISTORY OF PRESENT ILLNESS: Case Lopez is a 44-year-old gentleman who is seen with a left knee medial retinacular and probable quadriceps tendon tear. We discussed treatment options. I recommended open repair. Discussed the procedure, risks, complications, benefits, and recovery. The patient was agreeable. Consent regarding the procedure was obtained. PAST MEDICAL HISTORY: Hypertension. PAST SURGICAL HISTORY: Noncontributory. DAILY MEDICATIONS: Lisinopril/hydrochlorothiazide. ALLERGIES: None. SOCIAL HISTORY: He smokes cigarettes. PHYSICAL EVALUATION OF THE LEFT KNEE: His range of motion is -7 to 95 degrees. There is a palpable defect of the medial retinaculum up into the medial aspect of the quadriceps tendon. He has mild effusion. His collateral ligaments are stable. Hip rotation without pain. Distal neurovascular exam is intact. IMAGING STUDIES: Radiographs of the left knee failed to reveal any osseous abnormality. MRI of left knee revealed a tear of the medial retinaculum/capsule with intact ligaments. IMPRESSION: Left knee medial retinacular tear/quadriceps tendon tear. PLAN: Left knee arthrotomy with repair of the medial retinaculum and quadriceps tendon. Surgery is scheduled for 09/29/2024. MMODL / IJN: [id number] /
[~2024-09-29 13:06] MED LIST changes: -LACTATED RINGERS 1,000 ML IV SCH; -LIDOCAINE 1% (10MG/ML) FOR IV START INTRADERMA PRN; -LIDOCAINE 1% INJ 10MG/ML (20 ML MDV) ONE; -MIDAZOLAM 2 MG/2 ML VIAL IV PRN; -ONDANSETRON 4 MG/2 ML VIAL IVP PRN; -PROPOFOL 10 MG/ML 20 ML VIAL IV ONE; +TRANEXAMIC 1,000 MG/100ML-NACL 1,000 MG in SALINE 1 100ML.BAG IVPB PRN
[2024-09-29] MEDS: IV FLUID CONTINUATION 1,000 ML IV ONE (14:37)
[2024-09-29] MEDS: ONDANSETRON 4 MG/2 ML VIAL IVP ONE (15:04)
[2024-09-29] MEDS: MELOXICAM 7.5 MG TAB PO PRN (15:04)
[2024-09-29] MEDS: LACTATED RINGERS 1,000 ML IV SCH ×2 (15:04→18:38)
[2024-09-29] MEDS: ACETAMINOPHEN TAB 500 MG TAB PO PRN (15:04)
[2024-09-29] MEDS: DEXAMETHASONE SOD PHOSPHATE 4 MG/ML 1 ML VIAL IVP STA (15:06)
[2024-09-29] MEDS: MIDAZOLAM 2 MG/2 ML VIAL IV STA (15:15)
[2024-09-29] MEDS ORDERED: fentaNYL (PF) 50 MCG/ML 2 ML AMP ONE (15:20)
[2024-09-29] MEDS ORDERED: MIDAZOLAM 2 MG/2 ML VIAL ONE (15:20)
[2024-09-29] MEDS ORDERED: NEOSTIGMINE 1 MG/ML 10 ML VIAL ONE (15:20)
[2024-09-29] MEDS ORDERED: LIDOCAINE 1% INJ 10MG/ML (20 ML MDV) ONE (15:20)
[2024-09-29] MEDS ORDERED: ROPIVACAINE 5 MG/ML 30 ML VIAL ONE (15:20)
[2024-09-29] MEDS ORDERED: HYDROmorphone (PF) 1 MG/ML ONE (15:20)
[2024-09-29] MEDS ORDERED: SUCCINYLCHOLINE CHLORIDE 200 MG/10 ML VIAL IV ONE (15:20)
[2024-09-29] MEDS ORDERED: DEXAMETHASONE SOD PHOSPHATE 4 MG/ML 1 ML VIAL ONE (15:20)
[2024-09-29] MEDS ORDERED: TRANEXAMIC 1,000 MG/100ML-NACL PREMIX BAG ONE (15:20)
[2024-09-29] MEDS ORDERED: PROPOFOL 10 MG/ML 20 ML VIAL IV ONE (15:20)
[2024-09-29] MEDS ORDERED: GLYCOPYRROLATE 0.2 MG/ML 2 ML VIAL ONE (15:20)
[2024-09-29] MEDS ORDERED: ROCURONIUM 10 MG/ML (5 ML VIAL) IV ONE (15:20)
[2024-09-29] MEDS: ceFAZolin 2 GM in DEXTROSE 5% IN WATER 50 ML IVPB PRN (15:25)
[2024-09-29] MEDS: ceFAZolin 1,000 MG in SODIUM CHLORIDE 0.9% 1,000 ML IRRIGATION ONE (15:42)
[2024-09-29] MEDS ORDERED: HYDROmorphone 0.5 MG/0.5 ML SYRINGE IVP PRN (16:29)
[2024-09-29] MEDS ORDERED: HYDROmorphone 2 MG/ML 1 ML SYRINGE IVP PRN (16:29)
--- NOTE | 2024-09-29 16:29 | P.OP ---
Date of Procedure: 09/29/24 Preoperative Diagnosis: Left knee medial retinacular tear Postoperative Diagnosis: Left knee medial retinacular tear Procedure(s) Performed: Left knee arthrotomy with medial retinacular repair Anesthesia: HUNG regional (Adductor canal block) Surgeon: Gianfranco Lipscomb Recreation Clerk #1: Milo Lutz Estimated Blood Loss (ml): 15 Pathology: none sent Condition: stable Disposition: PACU Indications for Procedure: 44-year-old patient seen with a left knee medial retinacular tear. I recommended arthrotomy with repair of the medial retinacular tear. Patient was agreeable. Consent was obtained. Operative Findings: See description of procedure Description of Procedure: Patient was taken to the operative suite after having undergone a adductor canal block by the primary anesthesia for postoperative pain control. He underwent a general anesthetic by the department anesthesia. Web well-padded tourniquet placed proximal left thigh. He received preoperative IV antibiotics. The extremity was prepped and draped in the normal sterile orthopedic fashion. The extremity was elevated and tourniquet insufflated to 300. I made a standard anterior incision sharply through skin. Dissected down to subcu soft tissues. I immediately encountered significant synovial type fluid. I now explored the extensor mechanism. The quadriceps and patellar tendon were intact. There was significant high-grade partial tearing of the medial retinaculum along with a defect/hole more distally. We now open that area up and irrigated the joint wound out copiously with patient medial imbrication/repair of that medial retinaculum getting to [id number] healthy tissue. I now checked the repair with about 90 degrees of flexion it was stable. The wound was again irrigated with Irrisept. The subcutaneous soft tissues were tacked down to the deep tissues with 2-0 Vicryl. The incision was now repaired with a running subcuticular suture augmented with skin glue. Sterile dressings followed by Alexis bandage were applied. The tourniquet was released with immediate capillary refill of the entire extremity. The extremity is now placed into a knee immobilizer. The patient was then awakened, transferred to a bed and recovery in stable condition. Michael KEENE assisted in all aspects of the procedure.
[2024-09-29] MEDS: LACTATED RINGERS 1,000 ML IV ONE (16:38)
[2024-09-29] MEDS: HYDROmorphone 0.5 MG/0.5 ML SYRINGE IVP PRN (17:11)
[2024-09-29] MEDS: HYDROcodone/APAP 5-325MG 1 EACH TAB PO PRN (18:34)
--- NOTE | 2024-09-29 19:10 | P.ANPRN ---
Procedure Note - Anesthesia - Nerve Block Performed Left Adductor Canal Single Time Out Performed: Yes ([id number]) Date of Procedure: 09/29/24 Procedure Start Time: 15:17 Procedure Stop Time: 15:21 Location of Patient: PreOp Indication: Acute Post-Operative Pain, Requested by Surgeon Specifically requested for management of pain by DrAriadna: Gianfranco Lipscomb Sedation Type: Sedate with meaningful contact maintained Preparation: Sterile Prep Position: Supine Catheter: None Needle Types: Pajunk Needle Gauge: 21 Ultrasound used to visualize needle placement: Yes Ultrasound used to observe medication spread: Yes Injectate: 0.5% Ropivacaine (see comment for volume) (30cc+4mg decadron) Blood Aspirated: No Pain Paresthesia on Injection Noted: No Resistance on Injection: Normal Image Stored and Saved: Yes Events: Uneventful and Well Tolerated
[2024-09-29] MEDS: ONDANSETRON 4 MG/2 ML VIAL IVP PRN (20:07)
[2024-09-29] MEDS: ceFAZolin 2 GM in DEXTROSE 5% IN WATER 50 ML IVPB SCH (22:13)
[2024-09-30] MEDS ORDERED: droPERidol 2.5 MG/ML VIAL IVP PRN (07:00)
[2024-09-30] MEDS ORDERED: HYDROmorphone 0.5 MG/0.5 ML SYRINGE IVP PRN (07:00)
[2024-09-30 07:18] VITALS: BP 120/74; PULSE 92; RESP 18; TEMP 98
[2024-09-30] MEDS: ENOXAPARIN 40 MG/0.4 ML SYRINGE SQ SCH (08:43)
--- NOTE | 2024-09-30 09:52 | P.PN ---
Subjective Progress Note Date: 09/30/24 Principal diagnosis: Status post left knee medial retinacular repair Patient is examined today at bedside, his was also present. Patient is doing rather well, his pain is well-controlled. He has been urinating since surgery with no difficulty. He is utilizing the knee immobilizer as instructed. Denies any headaches, lightheadedness, chest pain, shortness of breath. Objective - Vital Signs Vital signs: Vital Signs Temp 98.0 F 09/30/24 06:43 Pulse 92 09/30/24 06:43 Resp 18 09/30/24 06:43 BP 120/74 09/30/24 06:43 Pulse Ox 94 L 09/30/24 06:43 FiO2 Intake & Output 09/29/24 09/30/24 09/30/24 18:59 06:59 18:59 Intake Total 1051 Output Total 15 Balance 1036 Weight 91.63 kg Intake: IV 1051 Output: Estimated Blood Loss 15 Other: # Voids 1 - Exam Left lower extremity: Knee immobilizer is in good position and condition. Alexis bandages also in good position and condition. Compartments of both the upper and lower leg are soft and compressible. Plantarflexion, dorsiflexion, EHL, FHL are intact. Calf is soft, no tenderness with palpation. Sensory exam to light touch is intact throughout the extremity. Dorsalis pedis pulses 2+ Assessment and Plan Assessment: Postoperative day #1 status post left knee medial retinacular repair Plan: Pain control, plan for discharge home on both oral [place] and stool softeners DVT prophylaxis, aspirin 81 mg daily Activity level restrictions were discussed, this to include use of the knee immobilizer and toe-touch weightbearing with walker Wound care instructions were discussed, this to include bandaging and showering Icing and elevating techniques discussed Discharge planning: Patient stable for discharge home today Time with Patient: Less than 30
--- NOTE | 2024-09-30 09:57 | P.DS ---
Providers Date of admission: 09/29/2024 Expected date of discharge: 09/30/24 Attending physician: Gianfranco Lipscomb Primary care physician: Santosh Lord Hospital Course: Date of admission: 09/29/2024 Date of discharge: 09/30/2024 Admission diagnosis: Status post left knee medial retinacular repair Discharge diagnosis: Same Attending physician: Dr. Lipscomb Surgical procedures: Left knee medial retinacular repair Brief history: Patient is a 44-year-old male with a history of a falling type injury that resulted in a medial retinacular tear of his left knee. At this point patient has failed conservative treatment measures and has opted to proceed with a elective left knee medial retinacular repair. Hospital course: Details of patient's surgery can be found in operative report. Patient tolerated the procedure well and was subsequently transported to orthopedic floor. Patient's orthopeidc and medical care was provided daily. Patient had daily laboratory tests performed for evaluation of overall blood counts. Patient had daily physical therapy to include strengthening range of motion as well as education with walker ambulation. Patient was treated with Lovenox for their postoperative DVT prophylaxis during their inpatient stay. Patient was noted to have a relatively uneventful postoperative course. Patient reported satisfactory pain control with oral pain medications by postoperative day 0. Patient showed satisfactory progress with physical therapy. Patient moved steadily through the program and had no difficulty meeting the goals by postoperative day 1. Given patient's otherwise satisfactory course and having met physical therapy goals, plan is to discharge patient home on postoperative day 1. Discharge condition/disposition: Patient will be discharged home in stable condition. Discharge medications: Instructions are given on resumption of patient's normal daily medications per primary care recommendation, in addition patient will be prescribed Copake 5 mg / 325 mg, senna S, aspirin 81 mg. Discharge instructions: 1. Wound care and infection precautions, keep incision dry and covered while showering, no lotions, creams, moisturizers. No soaking, tubs, pools, hottubs. Do not scrub over the incision. 2. Toe-touch weightbearing, knee immobilizer at all times. Knee must remain in full extension 3. Ice and elevate when necessary. Do not exceed 20 minutes per hour with ice pack. 4. Utilize compression sleeve until seen at first follow up appointment. 7. Pain meds and anticoagulants per prescription. 8. Pain medication has potential to cause constipation. Increase oral fluid and fiber intake. Contact primary care provider if you have not had a bowel movement within 48 hours after discharge 10. Follow up in office at 2 weeks postop with Michael Lutz PA-C/[facility] 11. Follow up with your primary care doctor 7-10 days after discharge. 12. Contact [facility] with any questions, . Procedures: Left knee medial retinacular repair Patient Condition at Discharge: Good Plan - Discharge Summary Discharge Rx Participant: No New Discharge Prescriptions: New Aspirin [Adult Low Dose Aspirin EC] 81 mg PO DAILY #30 tab HYDROcodone/APAP 5-325MG [Copake 5-325] 1 tab PO Q6HR PRN #28 tab PRN Reason: Pain Sennosides/Docusate Sodium [Senna-S 8.6-50 mg Tablet] 1 each PO DAILY PRN #30 tablet PRN Reason: Constipation No Action lisinopriL [Prinivil] 10 mg PO DAILY Omeprazole [PriLOSEC] 20 mg PO AC-BRKFST PRN PRN Reason: Heartburn Discharge Medication List lisinopriL [Prinivil] 10 mg PO DAILY 12/20/13 [History] Omeprazole [PriLOSEC] 20 mg PO AC-BRKFST PRN 09/26/24 [History] Aspirin [Adult Low Dose Aspirin EC] 81 mg PO DAILY #30 tab 09/30/24 [Rx] HYDROcodone/APAP 5-325MG [Copake 5-325] 1 tab PO Q6HR PRN #28 tab 09/30/24 [Rx] Sennosides/Docusate Sodium [Senna-S 8.6-50 mg Tablet] 1 each PO DAILY PRN #30 tablet 09/30/24 [Rx] Follow up Appointment(s)/Referral(s): Milo Lutz PAC [PHYSICIAN BELT SEWER] - 2 Weeks Activity/Diet/Wound Care/Special Instructions: Orthopedic discharge instructions: 1. Toe-touch weightbearing left lower extremity 2. Knee immobilizer must be worn at all times when ambulating, okay to remove but keep the knee straight while icing and elevating 3. Pain medication as needed 4. Okay to remove surgical dressing as of 10/08/2024 5. Okay to to shower directly over the incision after removal of dressing 6. Aspirin 81 mg daily for DVT prophylaxis 7. Please contact the orthopedic office with any acute issues or questions Discharge Disposition: HOME SELF-CARE
[2024-09-30] MEDS: HYDROcodone/APAP 5-325MG 1 EACH TAB PO PRN (10:20)
== END 2024-09-30 11:10 | disposition home or self-care (01) ==
LOC: OR 13:06 → 4SSUR 17:10 → OR 09-30 11:10
PROVIDERS: ATTEND Orthopaedic Surgery
DX: S83.32XA Tear of articular cartilage of left knee, current, initial encounter (principal); G89.18 Other acute postprocedural pain; I10 Essential (primary) hypertension; F17.210 Nicotine dependence, cigarettes, uncomplicated; Z79.899 Other long term (current) drug therapy; X58.XXXA Exposure to other specified factors, initial encounter
CPT/HCPCS: 27599; 64447; J2250; J0330; J1100; J2710; J0690 ×3; J2405; J2003; J1650; J3010; J1171 ×2; J2795; J2704; J1596